=== PATIENT | male | born 1985 | race Caucasian/White ===

== ENCOUNTER → 2023-08-20 | Outpatient (CLI) | payer BC ==
[2023-08-20 16:18] LABS: Homocysteine 7.98 UMOL/L (4.00-14.00)
[2023-08-20 20:11] LABS: Cardiolipin Ab IgG Interp Negative (Negative); Cardiolipin Ab IgM Interp Negative (Negative); Cardiolipin IgA Antibody <2.0 U/mL; Cardiolipin IgM Antibody <1.5 U/mL
[2023-08-21 12:05] LABS: APTT 44 Sec(s) (<43); APTT 1:1 Mix 38 Sec(s) (<43); DRVVT 1:1 Mix 57 Sec(s) (<44); DRVVT Confirmation Positive (Negative); Dilute Russell Viper Venom 78 Sec(s) (<44)
[2023-08-21 14:49] LABS: Protein C (Activity) 107.3 % (71.0-138.0)
[2023-08-22 10:05] LABS: Anti-Thrombin III Activity 91
== END | disposition home or self-care (01) ==
LOC: LABWHC1 08:44
PROVIDERS: ATTEND Family Medicine
DX: I82.409 Acute embolism and thrombosis of unspecified deep veins of unspecified lower extremity (principal)
CPT/HCPCS: 36415; 82103; 83090; 85300; 85303; 85306; 85415; 85613; 85730; 86147